=== PATIENT | male | born 1980 | race Hispanic/Latino ===

== ENCOUNTER 2017-09-10 16:45 | Emergency (ER) | payer SELFPAY ==
[~2017-09-10] VITALS: Ht 154.9 cm; Wt 56.1 kg
[2017-09-10 17:21] LABS: HEMATOCRIT 45.8 % (39.0-50.0); HEMOGLOBIN 15.2 g/dl (14.0-18.0); IMMATURE GRANULOCYTES 0.2 % (0.0-1.0); MEAN CELL VOLUME 94.8 fL CALC (80.0-100.0); MEAN CORPUSCULAR HGB 31.5 pG CALC (26.0-32.0); MEAN CORPUSCULAR HGB CONC 33.2 g/L CALC (32.0-36.0); NEUT# 3.1 thou/uL (1.82-7.42); RED BLOOD COUNT 4.83 mill/uL (4.70-6.10); RED CELL DISTRI WIDTH 12.6 % (11.5-15.5)
[2017-09-10 17:29] LABS: ALBUMIN 3.8 g/dL (3.2-5.0); ALKALINE PHOSPHATASE 104 u/l (38-126); ANION GAP 15 (6-22 (CALC)); BILIRUBIN, TOTAL 0.5 mg/dL (0.0-1.4); BUN 16 mg/dL (9-20); BUN/CREATININE RATIO 22 (12-20 (CALC)); CARBON DIOXIDE 30 mmol/l (22-30); CHLORIDE 103 mmol/l (95-108); CREATININE 0.7 mg/dL (0.7-1.3); GFR > 60 ML/MIN (>=60 (CALC)); GFR FOR AFR.AMER. > 60 ML/MIN (>=60 (CALC)); POTASSIUM 4.1 mmol/l (3.5-5.1); SGOT/AST 24 u/l (17-59); SGPT/ALT 33 u/l (21-72); SODIUM 143 mmol/l (137-146); TOTAL PROTEIN 7.4 g/dL (6.3-8.2)
[2017-09-10] MEDS ORDERED: KLOR-CON M2020 MEQ PO (17:40)
[2017-09-10] MEDS ORDERED: ENALAPRIL2.5 MG PO (17:40)
[2017-09-10] MEDS ORDERED: DIGOXIN0.125 MG PO (17:40)
[2017-09-10 17:41] LABS: MYOGLOBIN 21 ng/mL (0 - 121)
[2017-09-10] MEDS ORDERED: FUROSEMIDE20 MG PO (17:41)
[2017-09-10] MEDS ORDERED: CARVEDILOL3.125 MG PO (17:41)
[2017-09-10] MEDS ORDERED: LIPITOR20 M1 PO (17:41)
[2017-09-10 19:20] LABS: URINE BILIRUBIN - DIPSTICK NEGATIVE (NEGATIVE); URINE BLOOD DIPSTICK TRACE-INTACT (NEGATIVE); URINE COLOR YELLOW; URINE GLUCOSE - DIPSTICK NEGATIVE (NEGATIVE); URINE KETONE NEGATIVE (NEGATIVE); URINE LEUK ESTERASE NEGATIVE (NEGATIVE); URINE NITRITE - DIPSTICK NEGATIVE (Negative); URINE PROTEIN - DIPSTICK TRACE mg/dL (NEG-TRACE); URINE SPECIFIC GRAVITY 1.015
[2017-09-10 19:23] LABS: URINE CLARITY CLEAR
[2017-09-10 20:00] VITALS: BP 142/80
== END 2017-09-10 20:07 | disposition short-term general hospital (02) | DRG 303 ==
LOC: ED 16:45
PROVIDERS: Emergency Medicine; Family Medicine
DX: I51.7 Cardiomegaly (principal); I27.20 Pulmonary hypertension, unspecified; R09.02 Hypoxemia; R07.9 Chest pain, unspecified; R00.0 Tachycardia, unspecified; R06.02 Shortness of breath; I10 Essential (primary) hypertension

== ENCOUNTER 2019-08-15 | Inpatient (IN) | payer SELFPAY ==
[2019-08-15] VITALS (12 sets, daily range): BP systolic 116–144; BP diastolic 59–89
[~2019-08-15] MED LIST: CARVEDILOL3.125 MG PO; DIGOXIN0.125 MG PO; ENALAPRIL2.5 MG PO; FUROSEMIDE20 MG PO; KLOR-CON M2020 MEQ PO; LIPITOR20 M1 PO
--- NOTE | 2019-08-15 03:35 | NUR ---
PATIENT TO ROOM 9 FOR BEDSIDE TRIAGE.
--- NOTE | 2019-08-15 03:36 | NUR ---
PATIENT STATES HE HAS BEEN OUT OF ALL MEDS FOR 3 MONTHS. STATES NO PRIMARY TO FOLLOW UP WITH.
--- NOTE | 2019-08-15 04:30 | NUR ---
BIPAP SETTINGS 22/10 RATE 18 FIO2 45% SAO2 94%
--- NOTE | 2019-08-15 04:33 | NUR ---
PLACED ON BIPAP AFTER ABG RESULT.
[2019-08-15 04:53] LABS: HEMATOCRIT 51.7 % (39.0-50.0); HEMOGLOBIN 16.4 g/dl (14.0-18.0); IMMATURE GRANULOCYTES 0.1 % (0.0-5.0); MEAN CELL VOLUME 95.7 fL CALC (80.0-100.0); MEAN CORPUSCULAR HGB 30.4 pG CALC (26.0-32.0); MEAN CORPUSCULAR HGB CONC 31.7 g/dL CAL (32.0-36.0); NEUT# 3.32 thou/uL (1.82-7.42); RED BLOOD COUNT 5.4 mill/uL (4.70-6.10); RED CELL DISTRI WIDTH 14.7 % (11.5-15.5)
--- NOTE | 2019-08-15 05:00 | NUR ---
TOLERATING BIPAP WELL
[2019-08-15 05:10] LABS: ALBUMIN 3.6 g/dL (3.2-5.0); ALKALINE PHOSPHATASE 132 u/l (38-126); ANION GAP 9 (6-22 (CALC)); BILIRUBIN, TOTAL 0.6 mg/dL (0.0-1.4); BUN 17 mg/dL (9-20); BUN/CREATININE RATIO 21 (12-20 (CALC)); CARBON DIOXIDE 31 mmol/l (22-30); CHLORIDE 100 mmol/l (95-108); CREATININE 0.8 mg/dL (0.7-1.3); GFR > 60 ML/MIN (>=60 (CALC)); GFR FOR AFR.AMER. > 60 ML/MIN (>=60 (CALC)); POTASSIUM 4.8 mmol/l (3.5-5.1); SGOT/AST 42 u/l (17-59); SODIUM 136 mmol/l (137-146)
[2019-08-15 05:21] LABS: MYOGLOBIN 33 ng/mL (0 - 121)
[2019-08-15 05:39] LABS: URINE BILIRUBIN - DIPSTICK NEGATIVE (NEGATIVE); URINE BLOOD DIPSTICK TRACE-INTACT (NEGATIVE); URINE COLOR YELLOW; URINE GLUCOSE - DIPSTICK NEGATIVE (NEGATIVE); URINE KETONE NEGATIVE (NEGATIVE); URINE LEUK ESTERASE NEGATIVE (NEGATIVE); URINE NITRITE - DIPSTICK NEGATIVE (Negative); URINE PH 6.5 (4.5-8.0); URINE PROTEIN - DIPSTICK 100 mg/dL (NEG-TRACE); URINE UROBILINOGEN - DIPSTICK 0.2 E.U./dL (0.2)
[2019-08-15 05:45] LABS: URINE BACTERIA FEW hpf; URINE EPITHELIAL CELLS FEW EPI/hpf (0-FEW); URINE WBC 0-2 WBC/hpf (0-5)
--- NOTE | 2019-08-15 06:15 | NUR ---
APPEARS COMFORTABLE. VSThai. TOR.
--- NOTE | 2019-08-15 06:45 | NUR ---
UOP 800 CC
--- NOTE | 2019-08-15 06:55 | NUR ---
REPORT TO BRETT HART
--- NOTE | 2019-08-15 06:55 | NUR ---
RECIEVED CARE OF PATIENT. PT RESTING COMFORTABLY ON STRETCHER, WATCHING TV. MONITORS IN PLACE. IV ANTIBIOTIC INFUSING. BIPAP IN PLACE
--- NOTE | 2019-08-15 07:26 | NUR ---
PAULA SANDOVALBY. PT ON 5L VA.
--- NOTE | 2019-08-15 08:04 | NUR ---
PTT ORDERED. WAITING RESULT TO START HEPARIN. ASPIRIN GIVEN. PT AO X 3. SKIN PINK WARM AND DRY. BREATH SOUNDS RALES BILAT BASES. PT ON 5L O2. RESTING ON STRETCHER WATCHING TV
--- NOTE | 2019-08-15 09:00 | NUR ---
VOIDED 400 ML CLEAR YELLOW URINE
--- NOTE | 2019-08-15 09:08 | NUR ---
REPORT GIVEN TO [facility]
--- NOTE | 2019-08-15 09:15 | NUR ---
PT TRANSPORTED VIA STRETCHER, MONITOR IN PLACE, IV INFUSING, O2 AT 5L.
--- NOTE | 2019-08-15 09:30 | NUR ---
PT ADMITTED FROM ER, [facility], ACCOMPANIED PT VIA STRETCHER, HEPARIN GTT RUNNING AT 700 UNITS/HR ALERT AND ORIENTED X 3. BLOOD PRESSURE STABLE, SINUS TACH ON THE MONITOR.
--- NOTE | 2019-08-15 09:35 | NUR ---
NOTIFIED DR. VAZQUEZ AND PHARMACY OF PT ACCURATE WEIGH IN ON BEDSCALE, 50.68KG, HEPARIN GTT UPDATED.
--- NOTE | 2019-08-15 10:00 | NUR ---
DR. VAZQUEZ AT BEDSIDE FOR ASSESSMENT AND TO DISCUSS PLAN OF CARE, NEW ORDERS RECIEVED.
--- NOTE | 2019-08-15 10:45 | NUR ---
CALLED DR. VAZQUEZ, NEW DIET ORDERS.
--- NOTE | 2019-08-15 12:00 | NUR ---
PT RESTING IN BED WATCHING TV, DENIES PAIN AT THIS TIME, ALERT AND ORIENTEDX3 VSS AT THIS TIME. SEE PROCESS INTERVENTIONS FOR FULL ASSESSMENT.
--- NOTE | 2019-08-15 14:00 | NUR ---
PT RESTING IN BED WATCHING TV, NO BLEEDING, REDNESS OR TENDERNESS ASSESSED. PT DENIES PAIN AT THIS TIME, WILL CONTINUE TO MONITOR.
--- NOTE | 2019-08-15 16:41 | NUR ---
PTT RESULTS RECEIVED, HEPARIN GTT INCREASED TO 800 UNITS/HR PER PROTOCOL, CHANGE VERIFIED BY BRETT SOUZA.
--- NOTE | 2019-08-15 17:50 | NUR ---
TROPONIN DRAWN, NO BLEEDING OR CHEST PAIN PRESENT AT THIS TIME.
--- NOTE | 2019-08-15 18:41 | NUR ---
PT RESTING IN BED, NO DISCOMFORT, BLEEDING PRESENT. WILL CONTINUE TO MONITOR.
--- NOTE | 2019-08-15 18:42 | NUR ---
PT EATING DINNER IN BED, DENIES DISCOMFORT. NO BLEEDING PRESENT AT THIS TIME.
--- NOTE | 2019-08-15 20:00 | NUR ---
PATIENT IS AWAKENS EASILY WHEN SPOKEN TO, ORIENRTED X4. [place] SPEAKING ONLY. ON 4L/MIN NC, NO SOB NOTED. C/O OF "LUNG PAIN/BACK PAIN." USES URINAL. POC FOR TONIGHT EXPLAINED, EDUCATED ON DISEASE AND MEDICATIONS, PT UNDERSTAND AND AGREES. EXPLAINED HE HAS BEEN TESTED FOR COVID FOR SYMPTOMS AND ISOLATION PRECAUTIIONS IN PLACE. LFA TWIN CATH INTACT AND FLUSHES PROPERLY. HEPARIN DRIP INFUSING PROPERLY. NURSING ASSESSMENT PERFORMED. SELF REPSOITIONS. CALL LIGHT WITHIN REACH.
--- NOTE | 2019-08-15 22:00 | NUR ---
PT TOLERATED PO MEDS, TYLENOL GIVEN PER REQUEST. BLOOD DRAWN FOR PTT. NO ACUTE DISTRESS SHOWN. CALL LIGHT WITHIN REACH. NO OTHER NEEDS AT THIS TIME.
--- NOTE | 2019-08-15 23:20 | NUR ---
BOLUS GIVEN ACCORDING TO HEPARIN DRIP PROTOCOL. 1800 UNITS OR 0.36 ML, HEPARIN DRIP ALREADY TITRATED PER PROTOCOL. PTT ORDERED FOR 0500. PT EXPLAINED OF BOLUS HEPARIN. NOW RESTS WITH EYES CLOSED. NO ACUTE DISTRES SHOWN.
[2019-08-16] VITALS (15 sets, daily range): BP systolic 101–126; BP diastolic 50–72
--- NOTE | 2019-08-16 00:30 | NUR ---
BLOOD DRAWN FOR TROPONIN DUE, PT TOLERATES WELL. NO ACUTE DISTRES SSHWON. AFEBRILE. NO NEEDS AT THIS TIME. CALL LIGHT WITHIN REACH.
--- NOTE | 2019-08-16 05:02 | NUR ---
BLOOD DRAWN. PT TOLERATES WELL. REQUESTS OJ AND CRACKERS, PROVIDED. NO ACUTE DISTRES SHOWN. CALL LIGHT WITHIN REACH.
[2019-08-16 05:07] LABS: HEMATOCRIT 51.3 % (39.0-50.0); HEMOGLOBIN 16.1 g/dl (14.0-18.0); MEAN CELL VOLUME 95.4 fL CALC (80.0-100.0); MEAN CORPUSCULAR HGB 29.9 pG CALC (26.0-32.0); MEAN CORPUSCULAR HGB CONC 31.4 g/dL CAL (32.0-36.0); RED BLOOD COUNT 5.38 mill/uL (4.70-6.10); RED CELL DISTRI WIDTH 14.8 % (11.5-15.5)
[2019-08-16 05:45] LABS: CHOLESTEROL HDL RATIO 1.7 (<4.4 (CALC)); MAGNESIUM 1.7 mg/dL (1.6-2.3)
[2019-08-16 05:46] LABS: ANION GAP 6 (6-22 (CALC)); BUN 21 mg/dL (9-20); BUN/CREATININE RATIO 28 (12-20 (CALC)); CARBON DIOXIDE 37 mmol/l (22-30); CHLORIDE 96 mmol/l (95-108); CREATININE 0.7 mg/dL (0.7-1.3); GFR > 60 ML/MIN (>=60 (CALC)); GFR FOR AFR.AMER. > 60 ML/MIN (>=60 (CALC)); SODIUM 134 mmol/l (137-146)
--- NOTE | 2019-08-16 08:00 | NUR ---
PT ASSESSED, LAYING IN BED WATCHING TV, ALERT AND ORIENTED X3, MOVES ALL EXTREMITIES, NO BLEEDING, AFEBRILE. DENIES PAIN OR DISCOMFORT AT THIS TIME. SEE PROCESS INTERVENTION FOR FULL ASSESSMENT.
--- NOTE | 2019-08-16 08:00 | NUR ---
PT ASSESSED- RESTING IN BED WATCHING TV. DENIES PAIN OR DISCOMFORT AT THIS TIME. ALERT AND ORIENTED X3, MOVES ALL EXTREMIIES. NO BLEEDING PRESENT- SEE PROCESS INTERVENTIONS FOR FULL ASSESSMENT.
--- NOTE | 2019-08-16 10:00 | NUR ---
DR VAZQUEZ AT BEDSIDE, HEPARIN GTT DISCONTINUED AT THIS TIME.
--- NOTE | 2019-08-16 12:00 | NUR ---
PT RESTING IN BED, EATING LUNCH. DENIES DISCOMFORT OR PAIN AT THIS TIME. SEE PROCESS INTERVENTIONS FOR FULL ASSESSMENT.
--- NOTE | 2019-08-16 12:53 | NUR ---
DEPARTMENT OF HEALTH REPORT FOR COVID TEST RESULT RECEIVED- COVID19 NOT DETECTED.
--- NOTE | 2019-08-16 14:00 | NUR ---
PT RESTING IN BED,ALL VSS AT THIS TIME, WILL CONTINUE TO MONITOR.
--- NOTE | 2019-08-16 16:01 | NUR ---
PT RESTING IN BED AT THIS TIME. ALL VSS, WILL CONTINUE TO MONITOR.
--- NOTE | 2019-08-16 19:04 | NUR ---
PT RESTING IN BED, DENIES DISCOMFORT AT THIS TIME.
--- NOTE | 2019-08-16 19:45 | NUR ---
PT IS AWAKE, ALERT AND ORIENTED X4. ON 3 L/MIN NC, SATS 92%. REQUESTS TO GET UP TO USE THE RESTROOM, O2 EXTENSIONS WERE CONNECTED AND PATIENT ABLE TO WALK TO BATHROOM WITHOUT DIFFICULTY, WHEN LAYING BACK IN BED HE HAS SOB WITH EXERTION, I ASKED IF HE FELT SOB, HE STATES IN [place], "JUST A LITTLE BIT." PT DID DESAT TO 88% WHEN HE SAT BACK IN BED, EDUCATED HIM ON PURSED LIP BREATHING, PT WAS ABLE TO DEMONSTRATE BACK, O2 SAT WHEN BACK UP TO 92%. NURSING ASSESSMENT PERFORMED. AFEBRILE, SR ON TELEMETRY. TWIN CATH ON LAC INTACT AND FLSUHES PROPERLY. URINAL AT BEDSIDE. SELF REPSOITIONS. C/O HEADACHE TODAY IN THE AFTERNOON. POC FOR TONIGHT DISCUSSED. PT REPORTS THE DR TOLD HIM HE MIGHT BE ABLE TO GO HOME TOMORROW. CALL LIGHT WITHIN REACH.
[2019-08-17] VITALS (12 sets, daily range): BP systolic 94–119; BP diastolic 52–78
--- NOTE | 2019-08-17 00:29 | NUR ---
PT RESTS WITH EYES CLOSED. NO ACUTE DISTRESS SHOWN. CALL LIGHT WITHIN REACH. SATS 97% ON 3 L/MIN NC.
--- NOTE | 2019-08-17 00:31 | NUR ---
NC O2 WEANED TO 2 L/MIN, WILL CONTINUE TO MONITOR.
--- NOTE | 2019-08-17 01:09 | NUR ---
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 NOW LAYS BACK IN BED. DOES DESAT WITH EXERTION. CALL LIGHT WITHIN REACH.
--- NOTE | 2019-08-17 02:09 | NUR ---
PT SATS 92%-93% ON 2 L/MIN NC AT REST.
--- NOTE | 2019-08-17 04:28 | NUR ---
PT RESTS WITH EYES CLOSED. NO ACUTE DISTRESS SHOWN. SATS 96% ON 2 L/MIN NC. CALL LIGHT WITHIN REACH.
--- NOTE | 2019-08-17 04:59 | NUR ---
PT REQUESTS JUICE HTIS AM, APPLE JUICE PROVIDED WITH CRACKERS.
[2019-08-17 05:11] LABS: ANION GAP 6 (6-22 (CALC)); BUN 20 mg/dL (9-20); BUN/CREATININE RATIO 28 (12-20 (CALC)); CARBON DIOXIDE 33 mmol/l (22-30); CHLORIDE 99 mmol/l (95-108); CREATININE 0.7 mg/dL (0.7-1.3); GFR > 60 ML/MIN (>=60 (CALC)); GFR FOR AFR.AMER. > 60 ML/MIN (>=60 (CALC)); MAGNESIUM 1.9 mg/dL (1.6-2.3); POTASSIUM 4.2 mmol/l (3.5-5.1); SODIUM 134 mmol/l (137-146)
--- NOTE | 2019-08-17 06:45 | NUR ---
REPORT RECEIVED FROM WILBERTO MURRAY ASSUMED
--- NOTE | 2019-08-17 07:00 | NUR ---
PT RESTING IN BED ASLEEP. AROUSES TO VERBAL STIMULI. FLUSHING [facility] TRANSPORTATION TECHNICIAN AT BEDSIDE. PT IS ALERT AND ORIENTED X3. SHFIT ASSESSMENT COMPLETED AT THIS TIME. IV PATENT X1. CALL LIGHT IN REACH. WILL CONTINUE TO MONITOR.
--- NOTE | 2019-08-17 07:15 | NUR ---
PT TAKEN OFF OXYGEN AT THIS TIME. PT O2 SATS DROPPED TO 87%. PT PLACED BACK ON O2 2L NC.
--- NOTE | 2019-08-17 07:45 | NUR ---
PT SET UP FOR AM MEAL
--- NOTE | 2019-08-17 09:47 | NUR ---
RADIOLOGY AT BEDSIDE FOR PORTABLE CXR
--- NOTE | 2019-08-17 10:00 | NUR ---
DR VAZQUEZ AT BEDSIDE
--- NOTE | 2019-08-17 10:30 | NUR ---
PT SITTING UP IN BED WATCHING TV. RESP ARE EVEN AND UNLABROED. NO DISTRESS NOTED. CALL LIGHT IN REACH. WILL CONTINUE TO MONITOR.
--- NOTE | 2019-08-17 11:47 | NUR ---
PT SET UP FOR NOON MEAL AT THIS TIME
--- NOTE | 2019-08-17 13:59 | NUR ---
pt resting in bed watching tv at this time. resp are evn and unlabored. no distress noted. call light in reach. will continue to monitor.
--- NOTE | 2019-08-17 16:09 | NUR ---
PT RESTING IN BED WATCHING TV. RESP ARE EVEN AND UNLABORED. NO DISTRESS NOTED. CALL LIGHT IN REACH. WILL CONTINUE TO MONITOR.
--- NOTE | 2019-08-17 17:20 | NUR ---
PT SET UP FOR PM MEAL
--- NOTE | 2019-08-17 18:18 | NUR ---
PT RESTING IN BED AWAKE AND WATCHING TV. RESP ARE EVEN AND UNALBROED. NO DISTRESS NOTED. CALL LIGHT IN REACH. WILL CONTINUE TO MONIOTR.
--- NOTE | 2019-08-17 19:15 | NUR ---
REPORT GIVEN BY [facility]. PATIENT IN BED WATCHING TV. RESP EVEN AND UNLABORED, 2L O2 VIA NC.NO S/S OF DISTRESS NOTED. PATIENT INFORMED TO CALL WITH ANY QUESTIONS OR CONCERNS. PLAN OF CARE DISCUSSED. ERICK MARIE.
--- NOTE | 2019-08-17 22:36 | NUR ---
PATIENT UP TO USE RESTROOM.
[2019-08-18] VITALS (10 sets, daily range): BP systolic 91–141; BP diastolic 48–85
--- NOTE | 2019-08-18 00:39 | NUR ---
PATIENT RESTING WITH EYES CLOSED. RESP EVEN AND UNLABORED. NO S/S OF DISTRESS NOTED.
--- NOTE | 2019-08-18 03:03 | NUR ---
PATIENT RESTING WITH EYES CLOSED. RESP EVEN AND UNLABORED. PATIENT REMOVED O2 IN SLEEP, O2 PLACED BACK ON PATIENT.
--- NOTE | 2019-08-18 05:10 | NUR ---
PATIENT RESTING WITH EYES CLOSED. NO S/S OF DISTRESS NOTED. RESP EVEN AND UNLABORED.
[2019-08-18 06:28] LABS: ANION GAP 8 (6-22 (CALC)); BUN 22 mg/dL (9-20); BUN/CREATININE RATIO 28 (12-20 (CALC)); CARBON DIOXIDE 36 mmol/l (22-30); CHLORIDE 95 mmol/l (95-108); CREATININE 0.8 mg/dL (0.7-1.3); GFR > 60 ML/MIN (>=60 (CALC)); GFR FOR AFR.AMER. > 60 ML/MIN (>=60 (CALC)); POTASSIUM 4.3 mmol/l (3.5-5.1); SODIUM 134 mmol/l (137-146)
--- NOTE | 2019-08-18 06:45 | NUR ---
REPORT RECEIVED FROM [facility]. CARE ASSUMED.
--- NOTE | 2019-08-18 07:00 | NUR ---
PT RESTING IN BED AWAKE AND WATCHING TV. PT IS ALERT AND ORIENTED X3. SHIFT ASSESSMENT COMPLETED AT THIS TIME. IV PATENT X1. CALL LIGHT IN REACH. WILL CONTINUE TO MONITOR.
--- NOTE | 2019-08-18 07:20 | NUR ---
PT ASSISTED TO BATHROOM AT THIS TIME.
--- NOTE | 2019-08-18 08:30 | NUR ---
O2 SATS 87% ON 2L NC WITH GOOD WAVEFORM. PT DENIES SOB. PT RR IS 12 PT ENCOURAGED TO TAKE DEEP BREATHS. INCREASED O2 TO 4L NC TO MAINTAIN O2> 94%
--- NOTE | 2019-08-18 08:45 | NUR ---
Katy MOREL APRN AT BEDSIDE
--- NOTE | 2019-08-18 09:30 | NUR ---
dr mistry at bedside at this time
--- NOTE | 2019-08-18 09:58 | NUR ---
pt resting in bed awake and watching tv. resp are even and unlabored. no distress noted. call light in reach. will continue tomonitor.
--- NOTE | 2019-08-18 11:30 | NUR ---
PT SET UP FOR NOON MEAL
--- NOTE | 2019-08-18 12:19 | NUR ---
PT RESTING IN BED AWAKE AND WATCHING TV. RESP ARE EVEN AND UNLABORED NO DISTRESS NOTED. CALL LIGHT IN REACH. WILL CONTINUE TO MONITOR.
--- NOTE | 2019-08-18 13:53 | NUR ---
PT RESTING IN BED AWAKE AND WATCHING TV. RESP ARE EVEN AND UNLABROED. NO DISTRESS NOTED. CALL LIGHT IN REACH. WILL CONTINUE TO MONITOR
--- NOTE | 2019-08-18 14:37 | NUR ---
PT HAD A 15 BEAT RUN OF VTACH. EKG ORDERED. DR VAZQUEZ NOTIFIED. TRANSFER TO [facility] ORDERED.
--- NOTE | 2019-08-18 14:54 | NUR ---
[facility] transfer center called. spoke with dionte. transfer to [facility] initiated at this time
--- NOTE | 2019-08-18 15:13 | NUR ---
consent obtained for transfer to [facility]. dr cruz at bedside to translate.
--- NOTE | 2019-08-18 16:00 | NUR ---
PT RESTING INBED AWAKE. RESP ARE EVEN AND UNLABORED. CALL LIGHT IN REACH. WILL CONTINUE TO MONITOR.
--- NOTE | 2019-08-18 16:14 | NUR ---
ONI[facility] FROM [facility] CALLED WITH HOSPITAL ACCEPTANCE. DR ROCIO HONG ACCEPTS PATIENT HOSPITALIST. AWAITING BED ASSIGNMENT.
--- NOTE | 2019-08-18 17:20 | NUR ---
pt set up for pm meal
--- NOTE | 2019-08-18 17:36 | NUR ---
ONI[facility] FROM [facility] CALLED WITH BED ASSIGNMENT [phone]. PHONED [facility] SPOKE TO DAVID SET UP [facility] ETA 20 MINUTES.
--- NOTE | 2019-08-18 17:59 | NUR ---
REPORT CALLED TO AT [facility] AT [phone]
--- NOTE | 2019-08-18 18:08 | NUR ---
[facility] HERE. REPORT GIVEN.
--- NOTE | 2019-08-18 18:15 | NUR ---
PT LEFT [facility]IA [facility]
== END 2019-08-18 18:15 | disposition short-term general hospital (02) | DRG 291 ==
PROVIDERS: Emergency Medicine; ADMIT Internal Medicine
PROC: 5A09357 Assistance with Respiratory Ventilation, Less than 24 Consecutive Hours, Continuous Positive Airway Pressure (ICD-10-PCS; principal; 2019-08-15)
DX: I11.0 Hypertensive heart disease with heart failure (principal); J18.9 Pneumonia, unspecified organism; J96.01 Acute respiratory failure with hypoxia; I24.8 Other forms of acute ischemic heart disease; I47.2 Ventricular tachycardia; I50.23 Acute on chronic systolic (congestive) heart failure; I42.4 Endocardial fibroelastosis; I27.20 Pulmonary hypertension, unspecified; T50.916A Underdosing of multiple unspecified drugs, medicaments and biological substances, initial encounter; Z91.120 Patient's intentional underdosing of medication regimen due to financial hardship; Z20.828 Contact with and (suspected) exposure to other viral communicable diseases; Z87.891 Personal history of nicotine dependence
CPT/HCPCS: J1644; J3475; Q9967